=== PATIENT | female | born 1995 | race Caucasian/White ===

== ENCOUNTER 2019-01-12 20:58 | Emergency (ER) | payer OTHER ==
--- NOTE | 2019-01-12 22:41 | ER ---
Nurse's Notes [facility] Name: Herman Morton Age: 23 yrs Sex: Female : 1995 Arrival Date: 01/12/2019 Time: 20:59 Bed 7 Private MD: Diagnosis: Acute suppurative otitis media without spontaneous rupture of ear drum, recurrent, right ear;Abnormal uterine and vaginal bleeding, unspecified Presentation: 01/12 21:09 Presenting complaint: Patient states: she is having right ear pain since last night bb which now is causing right sided facial tenderness the pain is intermittently worse and she can't hear from that ear she also states she is having a heavier menstrual cycle than usual. Transition of care: patient was not received from another setting of care. Onset of symptoms was January 11, 2019. Risk Assessment: Do you want to hurt yourself or someone else? Patient reports no desire to harm self or others. Initial Sepsis Screen: Does the patient meet any 2 criteria? No. Patient's initial sepsis screen is negative. Does the patient have a suspected source of infection? No. Patient's initial sepsis screen is negative. Care prior to arrival: None. 21:09 Method Of Arrival: Ambulatory bb 21:09 Acuity: [place] 5 bb Triage Assessment: 21:15 General: Appears in no apparent distress. comfortable, Behavior is calm, cooperative, cc3 appropriate for age. Pain: Complains of pain in right ear. EENT: Reports pain in right ear. 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 - Social history:: Smoking status: Patient uses tobacco products, smokes 1.5 packs per day, Patient uses alcohol, occasionally. street drugs, marijuana. - Ebola Screening: : No symptoms or risks identified at this time. Screenin:15 Abuse screen: Denies threats or abuse. Denies injuries from another. Nutritional cc3 screening: No deficits noted. Tuberculosis screening: No symptoms or risk factors identified. Fall Risk Ambulatory Aid- None/Bed Rest/Nurse Assist (0 pts). Gait- Normal/Bed Rest/Wheelchair (0 pts) Mental Status- Oriented to own ability (0 pts). Assessment: 21:15 General: Appears in no apparent distress. comfortable, Behavior is calm, cooperative, cc3 appropriate for age. Pain: Complains of pain in right ear. Neuro: Level of Consciousness is awake, alert, obeys commands, Oriented to person, place, time, situation, Appropriate for age. Cardiovascular: Denies chest pain, Capillary refill < 3 seconds Patient's skin is warm and dry. Respiratory: Airway is patent Respiratory effort is even, unlabored, Respiratory pattern is regular, symmetrical. GI: Abdomen is round non-distended. : No signs and/or symptoms were reported regarding the genitourinary system. EENT: Reports pain in right ear. Derm: Skin is intact, is healthy with good turgor, Skin is pink, warm \T\ dry. normal. Musculoskeletal: Circulation, motion, and sensation intact. Range of motion: intact in all extremities. 22:55 Reassessment: Patient appears in no apparent distress at this time. Patient and/or cc3 family updated on plan of care and expected duration. Pain level reassessed. Patient is alert, oriented x 3, equal unlabored respirations, skin warm/dry/pink. ILIANA Menjivar discharged the patient home with prescription given. No valuables left in the patient's room. Patient states symptoms have improved. Vital Signs: 21:11 BP 134 / 76; Pulse 112; Resp 20 S; Temp 99.3(O); Pulse Ox 97% on R/A; Weight 120.2 kg bb (R); Height 5 ft. 7 in. (170.18 cm) (R); Pain 9/10; 22:30 BP 129 / 75; Pulse 107; Resp 18 S; Pulse Ox 98% on R/A; cc3 21:11 Body Mass Index 41.50 (120.20 kg, 170.18 cm) bb ED Course: 20:59 Patient arrived in ED. am2 21:11 Triage completed. bb 21:11 Arm band placed on Patient placed in an exam room, on a stretcher, on pulse oximetry. bb 21:15 Janis Villa is Primary Nurse. cc3 21:15 Patient has correct armband on for positive identification. Bed in low position. Call cc3 light in reach. Side rails up X 1. Pulse ox on. NIBP on. 21:17 Mitch Menjivar PA is PHCP. jr8 21:17 Milo Guardado MD is Attending Physician. jr8 22:40 Kalli Lipscomb MD is Referral Physician. jr8 22:55 No provider procedures requiring assistance completed. Patient did not have IV access cc3 during this emergency room visit. Administered Medications: No medications were administered Outcome: :40 Discharge ordered by . jr8 : Discharged to home ambulatory. cc3 22:55 Condition: stable 22:55 Discharge instructions given to patient, Instructed on discharge instructions, follow up and referral plans. medication usage, Demonstrated understanding of instructions, follow-up care, medications, Prescriptions given X 1. 22:57 Patient left the ED. cc3 Signatures: Kelley Morrow RN RN Mitch Hanson PA PA jr8 Nadege Santiago am2 Janis Villa cc3
--- NOTE | 2019-01-12 22:42 | EDPHYS ---
Physician Documentation [facility] Name: Herman Morton Age: 23 yrs Sex: Female : 1995 Arrival Date: 01/12/2019 Time: 20:59 Bed 7 Private MD: ED Physician Milo Guardado HPI: 01/12 22:10 This 23 yrs old Female presents to ER via Ambulatory with complaints of Ear jr8 Pain. 22:10 The patient presents with pain, that is acute. The complaints affect the right ear. jr8 Onset: The symptoms/episode began/occurred acutely, yesterday, and became worse. Modifying factors: The symptoms are alleviated by nothing, the symptoms are aggravated by pulling on ears, touching. Associated signs and symptoms: Pertinent negatives: cough, sore throat. Severity of symptoms: At their worst the symptoms were mild in the emergency department the symptoms are unchanged. The patient has not experienced similar symptoms in the past. The patient has not recently seen a physician. 22:10 Right ear pain x 2 days, worse today. Denies fever, cough, congestion. Reports heavy jr8 menstrual bleeding x 4 days. 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 - Social history:: Smoking status: Patient uses tobacco products, smokes 1.5 packs per day, Patient uses alcohol, occasionally. street drugs, marijuana. - Ebola Screening: : No symptoms or risks identified at this time. ROS: 22:10 Constitutional: Negative for fever, chills, and weight loss, Eyes: Negative for injury, jr8 pain, redness, and discharge, Neck: Negative for injury, pain, and swelling, Cardiovascular: Negative for chest pain, palpitations, and edema, Respiratory: Negative for shortness of breath, cough, wheezing, and pleuritic chest pain, Abdomen/GI: Negative for abdominal pain, nausea, vomiting, diarrhea, and constipation, MS/Extremity: Negative for injury and deformity, Skin: Negative for injury, rash, and discoloration, Neuro: Negative for headache, weakness, numbness, tingling, and seizure. 22:10 : Positive for vaginal bleeding, menstrual abnormality. 22:10 ENT: Positive for ear pain, Negative for sinus congestion, sore throat. jr8 22:10 : Negative for urinary symptoms. Exam: 22:16 Constitutional: This is a well developed, well nourished patient who is awake, alert, jr8 and in no acute distress. Head/Face: Normocephalic, atraumatic. Cardiovascular: Regular rate and rhythm with a normal S1 and S2. No gallops, murmurs, or rubs. Normal PMI, no JVD. No pulse deficits. Respiratory: Lungs have equal breath sounds bilaterally, clear to auscultation and percussion. No rales, rhonchi or wheezes noted. No increased work of breathing, no retractions or nasal flaring. Abdomen/GI: Soft, non-tender, with normal bowel sounds. No distension or tympany. No guarding or rebound. No evidence of tenderness throughout. Skin: Warm, dry with normal turgor. Normal color with no rashes, no lesions, and no evidence of cellulitis. MS/ Extremity: Pulses equal, no cyanosis. Neurovascular intact. Full, normal range of motion. Neuro: Awake and alert, GCS 15, oriented to person, place, time, and situation. Cranial nerves II-XII grossly intact. Motor strength 5/5 in all extremities. Sensory grossly intact. Cerebellar exam normal. Normal gait. 22:16 ENT: External ear(s): are unremarkable, Ear canal(s): erythema, that is minimal, of the right canal, TM's: dullness, on the right, erythema, on the right, loss of bony landmarks, on the right, Examination of the other ear shows no obvious abnormality, Nose: is normal, Mouth: is normal, Posterior pharynx: is normal, no erythema. Vital Signs: 21:11 BP 134 / 76; Pulse 112; Resp 20 S; Temp 99.3(O); Pulse Ox 97% on R/A; Weight 120.2 kg bb (R); Height 5 ft. 7 in. (170.18 cm) (R); Pain 9/10; 22:30 BP 129 / 75; Pulse 107; Resp 18 S; Pulse Ox 98% on R/A; cc3 21:11 Body Mass Index 41.50 (120.20 kg, 170.18 cm) bb MDM: 21:25 Patient medically screened. jr8 22:16 Differential diagnosis: otitis media, otitis externa, ruptured TM, foreign body, jr8 cerumen impaction. Data reviewed: vital signs, nurses notes, lab test result(s), UPT: negative. Data interpreted: Pulse oximetry: on room air is 98 %. Interpretation: normal. Counseling: I had a detailed discussion with the patient and/or guardian regarding: the historical points, exam findings, and any diagnostic results supporting the discharge/admit diagnosis, lab results. ED course: Right otitis media on exam. Discussed pt's concern due to heavy menstrual bleeding, UPT negative and hemodynamically stable. Instructed to follow up with [employer] DEMONSTRATOR. Patient verbalized understanding. 01/12 21:42 Order name: Urine Test (obtain specimen); Complete Time: 22:40 [facility] 01/12 22:01 Order name: Urine Dipstick-Ancillary (obtain specimen); Complete Time: 22:40 [facility] Administered Medications: No medications were administered Disposition: 01/13 06:38 Co-signature as Attending Physician, Milo Guardado MD I agree with the assessment and 4 plan of care. Disposition: 01/12/19 22:40 Discharged to Home. Impression: Acute suppurative otitis media without spontaneous rupture of ear drum, recurrent, right ear, Abnormal uterine and vaginal bleeding, unspecified. - Condition is Stable. - Discharge Instructions: Abnormal Uterine Bleeding, Otitis Media, Adult, Dysfunctional Uterine Bleeding. - Prescriptions for Amoxicillin 875 mg Oral Tablet - take 1 tablet by ORAL route every 12 hours for 10 days; 20 tablet. - Medication Reconciliation Form, Thank You Letter, Antibiotic Education, Prescription Opioid Use form. - Follow up: Mini Rekhi; When: 2 - 3 days; Reason: Recheck today's complaints, Re-evaluation by your physician. - Problem is new. - Symptoms have improved. Signatures: Kelley Morrow RN RN bb Mitch Menjivar PA PA jr8 Milo Guardado MD MD tw4 Janis Villa cc3 Corrections: (The following items were deleted from the chart) 01/12 22:57 22:40 01/12/2019 22:40 Discharged to Home. Impression: Acute suppurative otitis media cc3 without spontaneous rupture of ear drum, recurrent, right ear; Abnormal uterine and vaginal bleeding, unspecified. Condition is Stable. Discharge Instructions: Abnormal Uterine Bleeding, Otitis Media, Adult, Dysfunctional Uterine Bleeding. Prescriptions for Amoxicillin 875 mg Oral Tablet - take 1 tablet by ORAL route every 12 hours for 10 days; 20 tablet. and Forms are Medication Reconciliation Form, Thank You Letter, Antibiotic Education, Prescription Opioid Use. Follow up: Mini Rekhi; When: 2 - 3 days; Reason: Recheck today's complaints, Re-evaluation by your physician. Problem is new. Symptoms have improved. jr8
== END 2019-01-12 22:57 | disposition home or self-care (01) ==
LOC: ER 20:58
DX: H66.004 Acute suppurative otitis media without spontaneous rupture of ear drum, recurrent, right ear (principal); N93.9 Abnormal uterine and vaginal bleeding, unspecified; Z72.0 Tobacco use; Z88.5 Allergy status to narcotic agent
CPT/HCPCS: 99283